=== PATIENT | female | born 1990 | race Caucasian/White ===

== ENCOUNTER 2016-04-18 18:21 | Outpatient (CLI) | payer BC, OTHER ==
[~2016-04-18] VITALS: Ht 149.9 cm; Wt 87.0 kg
[2016-04-18 18:40] VITALS: BP 141/67
[2016-04-18] MEDS ORDERED: PRENATAL TABLE1 EAC3 PO (18:56)
[2016-04-18 19:05] LABS: EOSINOPHIL (%) 0.8 % (0-5); EOSINOPHIL COUNT 0.1 K/uL (0-0.3); HEMATOCRIT 33.5 % (36.0-46.0); IMMATURE GRANULOCYTE (%) 0.3 % (0.0-0.7); LYMPHOCYTE COUNT 1.5 K/uL (1.0-2.8); MCH 27.2 PG (29.0-34.0); MCHC 32.5 G/DL (30.0-36.0); MCV 83.5 FL (83-99); MEAN PLAT.VOLUME 10.3 uM^3 (9.5-12.4); MONOCYTE (%) 6.5 % (3-12); MONOCYTE COUNT 0.7 K/uL (0-0.8); NEUTROPHIL (%) 78.8 % (45-76); NEUTROPHIL COUNT 8.9 K/uL (1.8-6.4); PLATELET COUNT 285 K/uL (156-360); RBC DIS.WIDTH-CV 13.5 % (11.8-14.6); RBC DIS.WIDTH-SD 41.2 % (39-53); RED BLOOD COUNT 4.01 M/uL (3.80-5.20); WHITE BLOOD COUNT 11.3 K/uL (4.1-10.2)
[2016-04-18 19:18] LABS: ADD MIUA? YES; BILIRUBIN NEGATIVE; BLOOD SMALL; COLOR AMBER ((YELLOW)); GLUCOSE (STRIP) NEGATIVE; KETONES NEGATIVE; LEUKOCYTES SMALL; NITRITE NEGATIVE; PROTEIN (STRIP) 30; SPECIFIC GRAVITY 1.023 (1.000-1.030); UROBILINOGEN 0.2 MG/DL (0.2-1.0)
[2016-04-18 19:26] LABS: ALKALINE PHOSPHATASE 128 IU/L (3-129); ANION GAP 10 MEQ/L (2-14); CHLORIDE 107 MEQ/L (99-109); GFR ESTIMATE (CALCULATED) > 59 mL/min/; GLUCOSE 106 mg/dL (70-99); POTASSIUM 3.7 MEQ/L (3.7-5.4); SAMPLE HEMOLYSIS CHECK 0; SAMPLE ICTERIC CHECK 0; SAMPLE LIPEMIA CHECK 0; SODIUM 136 MEQ/L (136-147); TOTAL BILIRUBIN 0.3 MG/DL (0.0-1.0); UREA NITROGEN (BUN) 6 mg/dL (9-23)
[2016-04-18 20:37] VITALS: BP 124/69
[2016-04-18 21:10] LABS: BACTERIA 2+ /HPF; CALCIUM OXALATE CRYSTALS 2+ /HPF; CASTS NONE SEEN /LPF; CRYSTALS PRESENT; EPITHELIAL CELLS 1+ /HPF; MUCUS TRACE /LPF; UCUL ADDED? YES
[2016-04-18 22:41] VITALS: BP 115/66
[2016-04-19 00:45] VITALS: BP 104/60
[2016-04-19 04:37] VITALS: BP 128/67
[2016-04-19 07:37] LABS: EOSINOPHIL (%) 0 % (0-5); HEMATOCRIT 32.4 % (36.0-46.0); IMMATURE GRANULOCYTE (%) 0.3 % (0.0-0.7); IMMATURE GRANULOCYTE COUNT 0.1 K/uL; LYMPHOCYTE COUNT 1.1 K/uL (1.0-2.8); MCH 27.7 PG (29.0-34.0); MCHC 32.7 G/DL (30.0-36.0); MCV 84.8 FL (83-99); MEAN PLAT.VOLUME 10.5 uM^3 (9.5-12.4); MONOCYTE (%) 5.6 % (3-12); MONOCYTE COUNT 0.9 K/uL (0-0.8); NEUTROPHIL (%) 86.9 % (45-76); NEUTROPHIL COUNT 13.4 K/uL (1.8-6.4); PLATELET COUNT 274 K/uL (156-360); RBC DIS.WIDTH-CV 13.8 % (11.8-14.6); RED BLOOD COUNT 3.82 M/uL (3.80-5.20)
[2016-04-19 07:40] LABS: WHITE BLOOD COUNT 15.4 K/uL (4.1-10.2)
[2016-04-19 07:57] VITALS: BP 120/73
[2016-04-19 11:30] VITALS: BP 112/60
[2016-04-19] MEDS ORDERED: PERCOCET 5/31 TABLET PO (13:47)
== END 2016-04-19 15:55 | disposition home or self-care (01) ==
LOC: LDRP-OP 18:21 → 2WEST 18:22 → LDRP-OP 07-04 16:21
PROVIDERS: Advanced Practice Midwife
DX: R10.31 Right lower quadrant pain (principal); O99.89 Other specified diseases and conditions complicating pregnancy, childbirth and the puerperium; Z3A.33 33 weeks gestation of pregnancy
CPT/HCPCS: 59025; 76770; 80053; 81003; 85025; 87086; G0378; J1170; J2270; J2405; J7120

== ENCOUNTER 2016-05-31 07:03 | Inpatient (IN) | payer BC, OTHER ==
[2016-05-31] VITALS (15 sets, daily range): BP systolic 95–130; BP diastolic 53–77
[~2016-05-31] VITALS: Ht 149.9 cm; Wt 89.0 kg
[~2016-05-31 07:03] MED LIST: PERCOCET 5/31 TABLET PO; PRENATAL TABLE1 EAC3 PO
[2016-05-31 10:13] LABS: EOSINOPHIL (%) 0.4 % (0-5); HEMATOCRIT 30.7 % (36.0-46.0); IMMATURE GRANULOCYTE (%) 0.5 % (0.0-0.7); IMMATURE GRANULOCYTE COUNT 0.1 K/uL; INSTRUMENT ABS NEUTROPHIL CT 7.3 K/uL; LYMPHOCYTE COUNT 1.5 K/uL (1.0-2.8); MCH 25.9 PG (29.0-34.0); MCHC 31.6 G/DL (30.0-36.0); MCV 82.1 FL (83-99); MEAN PLAT.VOLUME 11.7 uM^3 (9.5-12.4); MONOCYTE (%) 6.2 % (3-12); MONOCYTE COUNT 0.6 K/uL (0-0.8); NEUTROPHIL (%) 77.4 % (45-76); NEUTROPHIL COUNT 7.3 K/uL (1.8-6.4); PLATELET COUNT 217 K/uL (156-360); RBC DIS.WIDTH-CV 14.4 % (11.8-14.6); RBC DIS.WIDTH-SD 42.3 % (39-53); RED BLOOD COUNT 3.74 M/uL (3.80-5.20); WHITE BLOOD COUNT 9.4 K/uL (4.1-10.2)
[2016-06-01] VITALS (33 sets, daily range): BP systolic 85–154; BP diastolic 48–93
[2016-06-01] MEDS ORDERED: IBUPROFEN800 MG PO (20:40)
[2016-06-02 03:49] VITALS: BP 115/59
[2016-06-02 07:06] LABS: EOSINOPHIL (%) 0.3 % (0-5); IMMATURE GRANULOCYTE (%) 0.6 % (0.0-0.7); IMMATURE GRANULOCYTE COUNT 0.1 K/uL; INSTRUMENT ABS NEUTROPHIL CT 9.6 K/uL; LYMPHOCYTE COUNT 1.4 K/uL (1.0-2.8); MCH 26.6 PG (29.0-34.0); MCHC 32.3 G/DL (30.0-36.0); MCV 82.3 FL (83-99); MONOCYTE (%) 7.7 % (3-12); MONOCYTE COUNT 0.9 K/uL (0-0.8); NEUTROPHIL (%) 79.8 % (45-76); NEUTROPHIL COUNT 9.6 K/uL (1.8-6.4); RBC DIS.WIDTH-CV 14.6 % (11.8-14.6); RBC DIS.WIDTH-SD 43.3 % (39-53); RED BLOOD COUNT 3.16 M/uL (3.80-5.20)
[2016-06-02 07:27] VITALS: BP 120/78
[2016-06-02 08:57] LABS: MEAN PLAT.VOLUME 11.9 uM^3 (9.5-12.4); PLATELET COUNT 203 K/uL (156-360)
[2016-06-02 15:38] VITALS: BP 134/76
[2016-06-02 22:45] VITALS: BP 122/66
[2016-06-03 07:41] VITALS: BP 107/60
[2016-06-03] MEDS ORDERED: CHROMAGEN,1 CAPSULE PO (10:26)
== END 2016-06-03 12:11 | disposition home or self-care (01) | DRG 775 ==
LOC: LDRP-OP 07:03 → 2WEST 07:04 → LDRP-OP 10:47 → 2WEST 06-01 20:15 → LDRP-OP 07-04 17:16
PROVIDERS: Midwife; Nurse Practitioner
DX: O26.86 Pruritic urticarial papules and plaques of pregnancy (PUPPP) (principal); O70.0 First degree perineal laceration during delivery; Z37.0 Single live birth; Z3A.39 39 weeks gestation of pregnancy; Z68.39 Body mass index [BMI] 39.0-39.9, adult; D50.8 Other iron deficiency anemias; O99.013 Anemia complicating pregnancy, third trimester; O12.04 Gestational edema, complicating childbirth; E66.9 Obesity, unspecified; O99.214 Obesity complicating childbirth; O99.344 Other mental disorders complicating childbirth; F32.9 Major depressive disorder, single episode, unspecified; O43.123 Velamentous insertion of umbilical cord, third trimester; Z87.442 Personal history of urinary calculi
CPT/HCPCS: 85025; C1755; G0378; J0595; J1200; J3010; J7120